=== PATIENT | male | born 1970 | race Caucasian/White ===

== ENCOUNTER → 2023-11-03 | Outpatient (CLI) | payer OTHER ==
--- NOTE | 2023-11-03 17:14 | CT ---
EXAMINATION TYPE: CT abdomen pelvis wo con DATE OF EXAM: 11/03/2023 COMPARISON: None HISTORY: LUQ/epigastric region pain, abnormal weight loss CT DLP: 350.40 mGycm Automated exposure control for dose reduction was used. TECHNIQUE: Helical acquisition of images was performed from the lung bases through the pelvis. FINDINGS: The lungs are clear. Absent gallbladder or severely contracted gallbladder. No gallstones.. There is no biliary ductal dil atation. There is no organomegaly of the liver, pancreas, spleen or adrenal glands. There are 2 5 mm nonobstructing left renal calcifications. There is no hydronephrosis. The caliber of the abdominal aorta is normal and there is no retroperitoneal adenopathy or hemorrhage . The bowel loops are normal in caliber is no evidence of obstruction. No inflammatory changes are iden tified in the mesentery and there is no free intraperitoneal air or fluid. There is no pelvic mass, free fluid, abscess or adenopathy. There is mild prostatic hypertrophy. The osseous structures and soft tissues are unremarkable. IMPRESSION: 2 nonobstructing 5 mm left renal calcifications. No other significant abnormality seen.
== END | disposition home or self-care (01) ==
LOC: RADCTMAIN 16:27
PROVIDERS: ATTEND Family Medicine
DX: N28.89 Other specified disorders of kidney and ureter (principal)
CPT/HCPCS: 74176